=== PATIENT | female | born 1990 | race Two or more races ===

== ENCOUNTER 2018-02-03 15:00 | Inpatient (IN) | payer OTHER ==
[~2018-02-03] VITALS: Ht 165.1 cm; Wt 87.1 kg
[2018-02-05] MEDS ORDERED: PRENATAL 19 TA1 EACH PO (06:38)
== END 2018-02-08 12:30 | disposition home or self-care (01) | DRG 806 ==
LOC: LDR 02-05 05:31 → OB/GYN 02-05 05:31 → SURG-SUITE 02-07 11:17 → OB/GYN 02-08 12:30
PROC: 10E0XZZ Delivery of Products of Conception, External Approach (ICD-10-PCS; principal; 2018-02-05)
PROC: 0HQ9XZZ Repair Perineum Skin, External Approach (ICD-10-PCS; 2018-02-05)
PROC: 10907ZC Drainage of Amniotic Fluid, Therapeutic from Products of Conception, Via Natural or Artificial Opening (ICD-10-PCS; 2018-02-05)
PROC: 4A1HXCZ Monitoring of Products of Conception, Cardiac Rate, External Approach (ICD-10-PCS; 2018-02-05)
DX: O60.14X0 Preterm labor third trimester with preterm delivery third trimester, not applicable or unspecified (principal); O41.03X0 Oligohydramnios, third trimester, not applicable or unspecified; O70.0 First degree perineal laceration during delivery; Z37.0 Single live birth; Z3A.36 36 weeks gestation of pregnancy